=== PATIENT | female | born 1995 | race Caucasian/White ===

== ENCOUNTER 2021-03-31 21:47 | Emergency (ER) | payer OTHER ==
[~2021-03-31 21:47] MED LIST: FLEXERIL5 MG PO; NAPROXEN500 MG PO; NORCO 5-325 TA1 EACH PO; PHENERGAN25 M1 PO
[2021-03-31 22:23] LABS: EOSINOPHIL 3.4 % (0-5); HCT 40.6 % (37.0-47.0); LYMPHOCYTE 31.8 % (15-48); MCH 29.9 pg (25.0-31.0); MCHC 34.5 g/dL (32.0-36.0); MCV 86.6 fL (78.0-100.0); MONOCYTE 6.7 % (0-12); MPV 10.6 fL (6.0-9.5); NEUTROPHIL 56.8 % (41-80); NRBC 0; PLT 260 K/uL (150-400); RBC 4.69 M/uL (4.20-5.40); RDW 12.2 % (11.5-14.0); WBC 6.9 K/uL (4.0-10.5)
[2021-03-31 22:40] LABS: ALBUMIN 4.1 g/dL (3.4-5.0); BILIRUBIN - TOTAL 1.5 mg/dL (0.2-1.0); BUN/CREAT RATIO (CALC) 9.6 RATIO; CREATININE 0.83 mg/dL (0.51-0.95); GLOBULIN (CALCULATION) 3.5 g/dL; POTASSIUM 3.7 mmol/L (3.5-5.1); TOTAL PROTEIN 7.6 g/dL (6.4-8.2)
== END 2021-04-01 00:26 | disposition home or self-care (01) ==
LOC: FER 21:47
PROVIDERS: Emergency Medicine
DX: F41.9 Anxiety disorder, unspecified (principal); Z88.0 Allergy status to penicillin
CPT/HCPCS: 36415; 70450; 80053; 85025; 93005; J0780; J1885

== ENCOUNTER 2021-07-30 19:33 | Emergency (ER) | payer OTHER ==
[2021-07-30 20:21] LABS: BILIRUBIN NEGATIVE (NEGATIVE); BLOOD TRACE-INTACT Ery/uL (NEGATIVE); CLARITY CLEAR (CLEAR); COLOR YELLOW (YELLOW); GLUCOSE (U) NORMAL (NORMAL); LEUKOCYTES 2+ Leu/uL (NEGATIVE); NITRITE NEGATIVE (NEGATIVE); PROTEIN NEGATIVE (NEGATIVE); SPECIFIC GRAVITY >=1.030 (1.001-1.030)
[2021-07-30 20:34] LABS: BASOPHIL 1.1 % (0-2); EOSINOPHIL 3.4 % (0-5); HCT 38.9 % (37.0-47.0); HGB 13.8 g/dl (12.5-16.0); LYMPHOCYTE 26.8 % (15-48); MCH 29.7 pg (25.0-31.0); MCHC 35.5 g/dL (32.0-36.0); MCV 83.8 fL (78.0-100.0); MONOCYTE 7.1 % (0-12); MPV 10.4 fL (6.0-9.5); NEUTROPHIL 61.4 % (41-80); NRBC 0; PLT 250 K/uL (150-400); RBC 4.64 M/uL (4.20-5.40); RDW 11.9 % (11.5-14.0); WBC 6.4 K/uL (4.0-10.5)
[2021-07-30 20:34] LABS: BACTERIA 3+; URINARY RBC RARE; URINARY WBC 20-50
[2021-07-30 20:51] LABS: BUN/CREAT RATIO (CALC) 11.1 RATIO; CREATININE 0.54 mg/dL (0.51-0.95); POTASSIUM 3.9 mmol/L (3.5-5.1)
[2021-08-03 00:09] LABS: CHLAMYDIA TRACHOMATIS, NAA Negative (Negative); NEISSERIA GONORRHOEAE, NAA Negative (Negative)
== END 2021-07-30 22:29 | disposition home or self-care (01) ==
LOC: FER 19:33
PROVIDERS: Physician Assistant
DX: O20.0 Threatened abortion (principal); O23.31 Infections of other parts of urinary tract in pregnancy, first trimester; Z3A.08 8 weeks gestation of pregnancy; Z88.0 Allergy status to penicillin; Z20.822 Contact with and (suspected) exposure to COVID-19
CPT/HCPCS: 36415; 80048; 81001; 84702; 85025; 87088; 87210; 87491; 87591; 99284; J7030; U0002

== ENCOUNTER 2021-08-01 11:21 | Emergency (ER) | payer OTHER ==
[~2021-08-01] VITALS: Ht 175.3 cm; Wt 72.6 kg
[2021-08-01 12:01] LABS: BILIRUBIN 1+ mg/dL (NEGATIVE); BLOOD 2+ Ery/uL (NEGATIVE); CLARITY CLEAR (CLEAR); COLOR YELLOW (YELLOW); GLUCOSE (U) NORMAL (NORMAL); LEUKOCYTES 1+ Leu/uL (NEGATIVE); NITRITE NEGATIVE (NEGATIVE); PROTEIN 1+ mg/dL (NEGATIVE); SPECIFIC GRAVITY 1.025 (1.001-1.030)
[2021-08-01 12:33] LABS: BACTERIA 2+
[2021-08-01 12:34] LABS: AMORPHOUS URATES CRYSTALS TRACE; MUCOUS MODERATE
== END 2021-08-01 15:50 | disposition home or self-care (01) ==
LOC: FER 11:21
PROVIDERS: Emergency Medicine
DX: O20.0 Threatened abortion (principal); Z3A.01 Less than 8 weeks gestation of pregnancy; Z90.49 Acquired absence of other specified parts of digestive tract; Z88.0 Allergy status to penicillin
CPT/HCPCS: 36415; 76801; 81001; 84702; 87088

== ENCOUNTER 2021-11-22 08:29 | Emergency (ER) | payer OTHER ==
[2021-11-22] MEDS ORDERED: ZITHROMAX TRI-500 MG PO (09:02)
== END 2021-11-22 09:08 | disposition home or self-care (01) ==
LOC: FER 08:29
DX: O99.891 Other specified diseases and conditions complicating pregnancy (principal); R05.9 Cough, unspecified; Z3A.24 24 weeks gestation of pregnancy; Z88.0 Allergy status to penicillin
CPT/HCPCS: 99283

== ENCOUNTER 2021-12-29 09:51 | Emergency (ER) | payer OTHER ==
[~2021-12-29 09:51] MED LIST changes: +ZITHROMAX TRI-500 MG PO
[2021-12-29 10:44] LABS: BASOPHIL 0.6 % (0-2); EOSINOPHIL 4.4 % (0-5); HGB 10.3 g/dl (12.5-16.0); LYMPHOCYTE 13.2 % (15-48); MCH 27.5 pg (25.0-31.0); MCHC 33.2 g/dL (32.0-36.0); MCV 82.7 fL (78.0-100.0); MONOCYTE 6.1 % (0-12); MPV 9.9 fL (6.0-9.5); NEUTROPHIL 73.8 % (41-80); NRBC 0; PLT 241 K/uL (150-400); RBC 3.75 M/uL (4.20-5.40); RDW 12.6 % (11.5-14.0)
[2021-12-29 10:52] LABS: INR 1.05 (0.9-1.2); PROTHROMBIN TIME 13.1 SECONDS (11.8-13.4); PTT 25.4 SECONDS (24.4-34.7)
[2021-12-29 10:54] LABS: D-DIMER 0.5 ug/mLFEU (0.00-0.41)
[2021-12-29 11:09] LABS: ALBUMIN 2.6 g/dL (3.4-5.0); ALKALINE PHOSHATASE 72 U/L (46-116); ALT 16 U/L (14-59); AST 13 U/L (15-37); BILIRUBIN - TOTAL 1.1 mg/dL (0.2-1.0); BUN 2 mg/dL (7-18); BUN/CREAT RATIO (CALC) 3.8 RATIO; CHLORIDE 104 mmol/L (98-107); CO2 (BICARBONATE) 20 mmol/L (21-32); CREATININE 0.52 mg/dL (0.51-0.95); GLOBULIN (CALCULATION) 3.7 g/dL; GLUCOSE 88 mg/dL (74-106); LDH 146 U/L (81-234); POTASSIUM 3.7 mmol/L (3.5-5.1); TOTAL PROTEIN 6.3 g/dL (6.4-8.2)
== END 2021-12-29 13:15 | disposition home or self-care (01) ==
LOC: FER 09:51
PROVIDERS: Emergency Medicine
DX: O99.891 Other specified diseases and conditions complicating pregnancy (principal); R07.89 Other chest pain; Z3A.29 29 weeks gestation of pregnancy; Z88.0 Allergy status to penicillin
CPT/HCPCS: 36415; 71275; 80053; 83615; 83880; 84439; 84443; 84484; 85025; 85379; 85610; 85730; 93005; Q9967

== ENCOUNTER 2022-03-07 05:06 | Inpatient (IN) | payer OTHER ==
[~2022-03-07] VITALS: Ht 175.3 cm; Wt 93.9 kg
[2022-03-07 06:12] LABS: BILIRUBIN NEGATIVE (NEGATIVE); BLOOD NEGATIVE Ery/uL (NEGATIVE); CLARITY CLEAR (CLEAR); COLOR YELLOW (YELLOW); GLUCOSE (U) NORMAL (NORMAL); HCT 31.2 % (37.0-47.0); HGB 9.6 g/dl (12.5-16.0); LEUKOCYTES 3+ Leu/uL (NEGATIVE); MCH 24.1 pg (25.0-31.0); MCHC 30.8 g/dL (32.0-36.0); MCV 78.2 fL (78.0-100.0); NITRITE NEGATIVE (NEGATIVE); PROTEIN NEGATIVE (NEGATIVE); RBC 3.99 M/uL (4.20-5.40); RDW 21.7 % (11.5-14.0); UROBILINOGEN 0.2 mg/dL (0.2-1.0); WBC 6.7 K/uL (4.0-10.5)
[2022-03-09 07:25] LABS: HCT 29.6 % (37.0-47.0); HGB 8.9 g/dl (12.5-16.0); MCH 24.1 pg (25.0-31.0); MCHC 30.1 g/dL (32.0-36.0); MPV 9.9 fL (6.0-9.5); RBC 3.7 M/uL (4.20-5.40); WBC 7.6 K/uL (4.0-10.5)
== END 2022-03-10 22:57 | disposition home or self-care (01) | DRG 806 ==
LOC: FOB 05:06
PROVIDERS: Obstetrics & Gynecology; ADMIT Obstetrics & Gynecology
PROC: 10E0XZZ Delivery of Products of Conception, External Approach (ICD-10-PCS; principal; 2022-03-08)
PROC: 0KQM0ZZ Repair Perineum Muscle, Open Approach (ICD-10-PCS; 2022-03-08)
PROC: 0UQMXZZ Repair Vulva, External Approach (ICD-10-PCS; 2022-03-08)
DX: O99.02 Anemia complicating childbirth (principal); D62 Acute posthemorrhagic anemia; Z37.0 Single live birth; Z3A.39 39 weeks gestation of pregnancy; O70.1 Second degree perineal laceration during delivery; O71.82 Other specified trauma to perineum and vulva; Z20.822 Contact with and (suspected) exposure to COVID-19; O13.5 Gestational [pregnancy-induced] hypertension without significant proteinuria, complicating the puerperium; D50.9 Iron deficiency anemia, unspecified; Z86.16 Personal history of COVID-19; Z87.11 Personal history of peptic ulcer disease; Z79.899 Other long term (current) drug therapy
CPT/HCPCS: 36415; 81001; J2916; J7120; U0002